=== PATIENT | male | born 1955 | race Caucasian/White ===

== ENCOUNTER → 2017-01-02 | Outpatient (CLI) | payer OTHER ==
[~2017-01-02] MED LIST: ADULT LOW DOSE81 M1 PO; ALDACTONE25 MG PO; AMLODIPINE BESY10 MG PO; AMLODIPINE BESYL5 MG PO; ASPIRIN325 MG PO; ASPIRIN81 M2 PO; Aspirin E.C. PO; BACLOFEN20 MG PO; BENTYL10 MG PO; BUMEX1 MG PO; BUTALB-APAP-CA1 EACH PO; BUTALB-CAFF-AC1 EACH PO; CALCIUM600 M1 PO; CARVEDILOL12.5 MG PO; CARVEDILOL6.25 MG PO; CLARITIN,ALAVAR10 MG PO; COREG12.5 M1 PO; COREG6.25 M1 PO; COUMADIN2.5 MG PO; COZAAR50 MG PO; CYMBALTA20 MG PO; Coreg PO; Cozaar PO; DAILY VITAMIN1 EAC4 PO; DEMADEX100 MG PO; DIAZEPAM5 MG PO; Demadex PO; Dulcolax PR; ECOTRIN325 MG PO; ELAVIL10 MG PO; ELIQUIS5 MG PO; EXCEDRIN MIGRA1 EAC3 PO; FUROSEMIDE20 MG PO; Flovent 110 mcg IH; GABAPENTIN300 MG PO; GLIPIZIDE10 MG PO; GLUCOPHAGE1000 MG PO; GLUCOSAMINE1000 MG PO; HUMALOG100 UNIT/1 SC; HUMALOG100 UNIT/2 SC; HYDROCODON-ACE1 EAC7 PO; HYDROXYZINE HCL25 MG PO; HYDROXYZINE HCL50 MG PO; IMDUR30 MG PO; IMDUR60 MG PO; ISOSORBIDE MONO30 MG PO; ISOSORBIDE MONO60 MG PO; Imdur PO; KADIAN60 MG PO; KENALOG,ARISTOC15 G2 TP; LANTUS 10100 UNITS/ SC; LANTUS 3 M100 UNITS1; LANTUS 3 M100 UNITS1 SC; LASIX40 MG PO; LITE COAT ASPI325 M1 PO; LO-DOSE ASPIRIN81 M2 PO; LOSARTAN POTAS100 MG PO; LOSARTAN POTASS50 MG PO; MAGNESIUM OXID400 MG PO; MAGNESIUM250 MG PO; METFORMIN HCL1000 MG PO; METFORMIN HCL500 M1 PO; METOLAZONE2.5 MG PO; METRONIDAZOLE500 MG PO; MIRTAZAPINE30 MG PO; MORPHINE SULFAT15 M1 PO; MORPHINE SULFAT15 MG PO; MORPHINE SULFAT60 MG PO; MS CONTIN,ORAMO15 M1 PO; NEURONTIN300 MG PO; NEURONTIN600 MG PO; NITROSTAT0.4 MG SL; NORVASC5 MG PO; Neurontin PO; OMEPRAZOLE40 M1 PO; OXYCODONE HCL5 MG PO; PENLAC 8%6.6 ML TP; PERCOCET 5/31 TABLET PO; POTASSIUM CHLO10 ME3 PO; POTASSIUM GLUCO2 MEQ PO; PRAVACHOL40 MG PO; PRAVASTATIN SOD40 MG PO; PROSTATE HEALT1 EAC1 PO; Protonix PO; RANEXA1000 MG PO; RANEXA500 MG PO; RANITIDINE HCL150 MG PO; REMERON15 M2 PO; ROCALTROL0.25 MCG PO; SIMVASTATIN40 MG PO; Singulair PO; TORSEMIDE100 MG PO; TRIAMCINOLONE A15 G1 TP; TRIAMCINOLONE A15 GM TP; VENTOLIN HFA18 GM IH; VITAMIN B-2100 MG PO; VITAMIN B12 100MCG PO; VITAMIN D32000 UNI1 PO; VITAMIN E1000 UNI1 PO; XARELTO10 MG PO; XARELTO20 MG PO; Xarelto PO; ZESTRIL20 MG PO; ZOCOR40 MG PO; ZOFRAN ODT4 MG SL; ZOFRAN4 MG PO; ZOO CHEWS1 EACH PO; oxyCODONE PO
== END | disposition home or self-care (01) ==
LOC: PICC 10:26
DX: T82.898A Other specified complication of vascular prosthetic devices, implants and grafts, initial encounter (principal); T84.54XA Infection and inflammatory reaction due to internal left knee prosthesis, initial encounter; Y79.2 Prosthetic and other implants, materials and accessory orthopedic devices associated with adverse incidents; Z88.0 Allergy status to penicillin; Z91.040 Latex allergy status; Z91.013 Allergy to seafood; Z88.8 Allergy status to other drugs, medicaments and biological substances
CPT/HCPCS: 76937; C1769

== ENCOUNTER 2017-02-12 09:35 | Observation (INO) | payer OTHER ==
[~2017-02-12] VITALS: Ht 177.8 cm; Wt 111.0 kg
[2017-02-12 10:29] LABS: HEMATOCRIT 36.2 % (38.0-50.0); MCH 24.1 PG (29.0-34.0); MCHC 31.5 G/DL (30.0-36.0); MCV 76.4 FL (86-99); PLATELET COUNT 317 K/uL (156-360); RBC DIS.WIDTH-CV 20.8 % (11.8-14.6); RBC DIS.WIDTH-SD 56.3 % (39-53); RED BLOOD COUNT 4.74 M/uL (4.00-5.50); WHITE BLOOD COUNT 8.2 K/uL (4.1-10.2)
[2017-02-12 10:39] LABS: INTER. NORMALIZED RATIO 1.4; PROTHROMBIN TIME 15.8 SEC (10.2-12.9)
[2017-02-12 10:52] LABS: ALKALINE PHOSPHATASE 79 IU/L (3-129); ANION GAP 13 MEQ/L (2-14); CHLORIDE 103 MEQ/L (99-109); GFR ESTIMATE (CALCULATED) > 59 mL/min/; GLUCOSE 115 mg/dL (70-99); POTASSIUM 4.5 MEQ/L (3.7-5.4); SAMPLE HEMOLYSIS CHECK 0; SAMPLE ICTERIC CHECK 0; SAMPLE LIPEMIA CHECK 0; SODIUM 141 MEQ/L (136-147); TOTAL BILIRUBIN 0.5 MG/DL (0.0-1.0); UREA NITROGEN (BUN) 20 mg/dL (9-23)
[2017-02-12 11:15] LABS: TROP-I INTERPRETATION NEGATIVE; TROPONIN-I < 0.01 ng/mL (0.0-0.30)
[2017-02-12 15:12] VITALS: BP 136/71
[2017-02-12 17:32] LABS: TROP-I INTERPRETATION NEGATIVE; TROPONIN-I < 0.01 ng/mL (0.0-0.30)
[2017-02-12 20:00] VITALS: BP 146/70
[2017-02-12 21:10] LABS: POINT-OF-CARE METER ID UU14162513
[2017-02-12 23:23] LABS: TROP-I INTERPRETATION NEGATIVE; TROPONIN-I < 0.01 ng/mL (0.0-0.30)
[2017-02-13] VITALS: BP 141/82
[2017-02-13 03:41] VITALS: BP 129/80
[2017-02-13 03:50] LABS: ADD MIUA? NO; BILIRUBIN NEGATIVE; BLOOD NEGATIVE; COLOR YELLOW ((YELLOW)); GLUCOSE (STRIP) NEGATIVE; KETONES NEGATIVE; LEUKOCYTES NEGATIVE; NITRITE NEGATIVE; PROTEIN (STRIP) NEGATIVE; SPECIFIC GRAVITY 1.026 (1.000-1.030); UCUL ADDED? NO; UROBILINOGEN 0.2 MG/DL (0.2-1.0)
[2017-02-13 05:13] LABS: HEMATOCRIT 32.2 % (38.0-50.0); MCHC 31.7 G/DL (30.0-36.0); MCV 75.8 FL (86-99); MEAN PLAT.VOLUME 8.7 uM^3 (9.0-12.4); PLATELET COUNT 290 K/uL (156-360); RBC DIS.WIDTH-CV 20.5 % (11.8-14.6); RBC DIS.WIDTH-SD 56.1 % (39-53); RED BLOOD COUNT 4.25 M/uL (4.00-5.50); WHITE BLOOD COUNT 7.4 K/uL (4.1-10.2)
[2017-02-13 08:16] LABS: POINT-OF-CARE METER ID UU13113700
[2017-02-13 08:56] VITALS: BP 163/78
== END 2017-02-13 12:01 | disposition home or self-care (01) ==
LOC: EME → EDBD 09:35 → EDOF 13:24 → 5WEST 13:24 → ENRESERV 13:29 → 5WEST 14:30 → ENPENDDIS 02-13 11:14 → 5WEST 02-13 12:01
PROVIDERS: Emergency Medicine; Internal Medicine; Nurse Practitioner Adult Health
DX: R07.9 Chest pain, unspecified (principal); R55 Syncope and collapse; I25.10 Atherosclerotic heart disease of native coronary artery without angina pectoris; Z95.1 Presence of aortocoronary bypass graft; R42 Dizziness and giddiness; Z86.718 Personal history of other venous thrombosis and embolism; Z86.711 Personal history of pulmonary embolism; Z79.01 Long term (current) use of anticoagulants; R25.1 Tremor, unspecified; I71.2 Thoracic aortic aneurysm, without rupture; Z95.828 Presence of other vascular implants and grafts; E11.9 Type 2 diabetes mellitus without complications; G89.29 Other chronic pain; I11.0 Hypertensive heart disease with heart failure; I50.30 Unspecified diastolic (congestive) heart failure; T84.54XD Infection and inflammatory reaction due to internal left knee prosthesis, subsequent encounter; Z79.2 Long term (current) use of antibiotics; Z82.49 Family history of ischemic heart disease and other diseases of the circulatory system; Z88.0 Allergy status to penicillin; Z88.1 Allergy status to other antibiotic agents; Z88.8 Allergy status to other drugs, medicaments and biological substances; Z91.040 Latex allergy status; Z91.030 Bee allergy status; Z79.4 Long term (current) use of insulin; Z79.84 Long term (current) use of oral hypoglycemic drugs
CPT/HCPCS: 70450; 71020; 71275; 80053; 81003; 82948; 84484; 85027; 85610; 93005; 93306; 93970; 99281; 99284; G0378; G8978 GP CH; G8979 GP CH; G8980 GP CH; G8987 GO CH; G8988 GO CH; G8989 GO CH; J7030

== ENCOUNTER 2017-08-16 00:57 | Observation (INO) | payer OTHER ==
[~2017-08-16] VITALS: Ht 177.8 cm; Wt 108.9 kg
[2017-08-16 01:48] LABS: HEMATOCRIT 37.2 % (38.0-50.0); HEMOGLOBIN 12.7 G/DL (12.5-16.6); MCH 29.6 PG (29.0-34.0); MCHC 34.1 G/DL (30.0-36.0); MCV 86.7 FL (86-99); PLATELET COUNT 305 K/uL (156-360); RBC DIS.WIDTH-SD 47.9 % (39-53); RED BLOOD COUNT 4.29 M/uL (4.00-5.50); WHITE BLOOD COUNT 7.7 K/uL (4.1-10.2)
[2017-08-16 02:01] LABS: CHLORIDE 106 mEq/L (99-109); POTASSIUM 3.9 mEq/L (3.7-5.4); SODIUM 139 mEq/L (136-147)
[2017-08-16 02:02] LABS: GLUCOSE 212 mg/dL (70-99)
[2017-08-16 02:06] LABS: CREATININE 1.1 mg/dL (0.6-1.3); GFR ESTIMATE (CALCULATED) > 59 mL/min/ (58.99-99999)
[2017-08-16 02:07] LABS: UREA NITROGEN (BUN) 27 mg/dL (9-23)
[2017-08-16 02:09] LABS: TROP-I INTERPRETATION NEGATIVE; TROPONIN-I < 0.01 ng/mL (0.0-0.30)
[2017-08-16 02:15] LABS: INTER. NORMALIZED RATIO 1.2
[2017-08-16 02:17] LABS: ALBUMIN 4.2 g/dL (3.2-4.8)
[2017-08-16 02:20] LABS: TOTAL PROTEIN 7.2 g/dL (6.4-8.3)
[2017-08-16 02:21] LABS: TOTAL BILIRUBIN 0.7 mg/dL (0.0-1.0)
[2017-08-16 02:22] LABS: ALKALINE PHOSPHATASE 123 IU/L (3-129)
[2017-08-16 02:32] LABS: ALT (GPT) 13 IU/L (3-49); AST (GOT) 18 IU/L (2-34); DIRECT BILIRUBIN 0.2 mg/dL (0.0-0.3); LIPASE 35 U/L (1.0-51.0)
[2017-08-16 08:32] LABS: TROP-I INTERPRETATION NEGATIVE; TROPONIN-I 0.01 ng/mL (0.0-0.30)
[2017-08-16] MEDS ORDERED: ELIQUIS5 MG PO (10:47)
[2017-08-16] MEDS ORDERED: HUMALOG MI100 UNIT/3 SC ×3 (10:51→10:53)
[2017-08-16] MEDS ORDERED: PREDNISOLONE AC15 ML RIGHT EYE (10:53)
[2017-08-16] MEDS ORDERED: OFLOXACIN10 M1 RIGHT EYE (10:54)
[2017-08-16 13:19] LABS: TROP-I INTERPRETATION NEGATIVE; TROPONIN-I < 0.01 ng/mL (0.0-0.30)
[2017-08-16] MEDS ORDERED: IMDUR60 MG PO (13:38)
[2017-08-16 17:37] VITALS: BP 152/892
== END 2017-08-16 17:44 | disposition home or self-care (01) ==
LOC: EME 00:57 → EDOF 04:09 → ENRESERV 04:14 → CANRESERV 12:48 → ENRESERV 12:48 → EDOF 17:44
PROVIDERS: Internal Medicine; Internal Medicine Nephrology
DX: R07.89 Other chest pain (principal); Z86.711 Personal history of pulmonary embolism; Z86.718 Personal history of other venous thrombosis and embolism; E78.5 Hyperlipidemia, unspecified; E11.9 Type 2 diabetes mellitus without complications; Z79.01 Long term (current) use of anticoagulants; I25.10 Atherosclerotic heart disease of native coronary artery without angina pectoris; Z95.1 Presence of aortocoronary bypass graft; Z95.5 Presence of coronary angioplasty implant and graft; I71.2 Thoracic aortic aneurysm, without rupture; Z98.890 Other specified postprocedural states; Z79.4 Long term (current) use of insulin; Z86.73 Personal history of transient ischemic attack (TIA), and cerebral infarction without residual deficits; G47.33 Obstructive sleep apnea (adult) (pediatric); I11.0 Hypertensive heart disease with heart failure; I50.9 Heart failure, unspecified; G89.29 Other chronic pain; Z79.891 Long term (current) use of opiate analgesic; I48.91 Unspecified atrial fibrillation; J45.909 Unspecified asthma, uncomplicated; K21.9 Gastro-esophageal reflux disease without esophagitis; Z96.652 Presence of left artificial knee joint; Z90.49 Acquired absence of other specified parts of digestive tract; Z82.49 Family history of ischemic heart disease and other diseases of the circulatory system; M17.10 Unilateral primary osteoarthritis, unspecified knee; Z88.0 Allergy status to penicillin; Z88.1 Allergy status to other antibiotic agents; Z88.8 Allergy status to other drugs, medicaments and biological substances; Z91.030 Bee allergy status; Z91.040 Latex allergy status; Z91.013 Allergy to seafood
CPT/HCPCS: 71046; 71275; 74177; 80048; 80076; 82948; 83690; 84484; 85027; 85610; 85730; 93005; 99202; G0378; J2270